=== PATIENT | female | born 1940 | race Caucasian/White ===

== ENCOUNTER 2020-06-27 14:12 | Inpatient (IN) | payer OTHER, BC ==
[~2020-06-27] VITALS: Ht 162.6 cm; Wt 64.7 kg
--- NOTE | ~2020-06-27 | D ---
[facility] [place] [address] DISCHARGE SUMMARY Name: SUNSHINE AHMADI Room #: 519A-A [facility] IN M.R.#: [id number] Admission: 06/27/20 Attend Phys: Elpidio Can DO Discharge: 07/11/20 Date of : 42 Report #: [id number] THIS REPORT FOR: cc: ED HINSON Physician not on staff Elpidio Can DO ~ THIS REPORT FOR: //name// CC: Elpidio HINSON Physician staff DATE OF SERVICE: 07/11/2020 INPATIENT PSYCHIATRY DISCHARGE SUMMARY ATTENDING PHYSICIAN: Elpidio Can DO GROUND HOST/HOSTESS AT THE TIME OF DISCHARGE: Massimo Leary MD DISCHARGE DIAGNOSES: As follows: Bipolar 1 disorder, manic features, improved and major neurocognitive disorder. MEDICAL COMORBIDITIES: This admission include left renal cell carcinoma, outpatient Neurology followup, hypertension, diabetes mellitus type 2, hypothyroidism, osteoarthritis, cervical degenerative disk disease, chronic urinary incontinence. DISCHARGE PLAN: Discharged to the home she shares with her son. Follow up, the son wishes to arrange [facility]. Engagement is encouraged in the patient's case officially. Tej is going to schedule primary care physician, I believe [facility]. This is very near the zip code where they live. The patient's diet should be an 1800-calorie diabetic diet, 08/06 care supervision recommended for the patient. DISCHARGE MEDICATIONS: Amlodipine 10 mg oral daily for hypertension; Depakote Sprinkles 750 mg p.o. b.i.d. for mood stabilization; Seroquel 125 mg p.o. at [phone] and 50 mg p.o. at 2200; pantoprazole 40 mg p.o. daily, metformin 500 mg p.o. b.i.d., glipizide 5 mg p.o. daily, levothyroxine 200 mcg p.o. daily; nystatin 15 gram powder topically 3 times a 30-day, apply for 2 more weeks. A 30-day prescription was supplied for psychiatric medication. LABORATORY DATA: This admission, urinalysis showed urobilinogen of 4, leukocyte esterase 2+. Red blood cells, white blood cells, squamous epithelial cells, crystals none seen, bacteria few. Urine casts were none seen. Mucus light urine, had negative random glucose. Most recent Depakote level was 37 on [facility] [address] [place] [address] DISCHARGE SUMMARY Name: SUNSHINE AHMADI JESSICA Room #: 519A-A [facility] IN [facility]#: [id number] Admission: 06/27/20 Attend Phys: Elpidio Can DO Discharge: 07/11/20 Date of : 42 Report #: [id number] 07/09/2020, dose was increased and actually as I look through the mail, the patient has prescription for followup Depakote level because there is a dose after that was increased, I believe. Microbiology at this admission showed a normal genitourinary turner. REASON FOR ADMISSION: Back on 06/27/2020, a 79-year-old female referred from [facility]. She has had a recent diagnosis of cancer. She was noted to be slurring her words pressured speech, flight of ideas, brought to the ER and not responding to questions appropriately. The patient was referred for psychiatric admission. HOSPITAL COURSE: The patient was admitted to Geriatric Psychiatry Unit. The patient remained disorganized, intrusive for at least the first week of her hospitalization. Olanzapine was started. Depakote was started, first level came back at 37 from 500 b.i.d., this was increased to 750 b.i.d. Seroquel was slowly titrated. She did have periods of poor sleep, only sleeping a couple of hours at night. Over time, her behavior improved. Recommended assisted living level of care. The son wanted her to remain in the home they shared together. PHYSICAL EXAMINATION: VITAL SIGNS: On the day of discharge, temperature 36.3, pulse 103, respirations 18, BP 138/71, O2 sat 99%. MUSCULOSKELETAL: Normal gait and station. MENTAL STATUS EXAMINATION: This is a well-developed, disheveled female appearing stated age. Attention limited. Concentration limited. Speech is normal in rate, volume and tone. Thought process is linear and goal directed. Thought content, relative poverty of thought. No psychomotor agitation or psychomotor retardation. Denied SI or HI. Denied hopelessness, helplessness. Denied auditory, visual, or tactile hallucinations. Memory not formally tested on the day of discharge, but known to be impaired. Insight limited. Judgment fair to limited. Fund of knowledge below average. PROGNOSIS: For this patient is guarded given her age and having chronic mental illness and really will depend on the level of care the son can to provide. By: 15 38 Elpidio Can, /nt
[2020-06-27 16:11] VITALS: BP 145/65
--- NOTE | 2020-06-27 18:00 | NUR ---
Patient arrived per [facility] ambulance with 3 attendants at 1345 with belongings and further belongings from son later. Phone consents from son Tej witnessed by Monica RN and LOIS Roy.During interview patient was cooperative,oriented only to person. She denied SI/HI/AH/VH. She said she was 89 yo though is 79 per birthdate. She did not know her meds. She lives with her son. She stated he lives with her coming in when she needs help. Son says he is with her when he is in town and she has companions/caregivers when he is out of town. No delusional content was detected. Patient stated she fell recently prior to coming into the hospital-that she blacked out and in the process of trying to catch herself her head struck the wall x 2. No c/o headache. She stated she has lost some weight but is not an accurate historian as son thought she had lost from 172# 2-3 years ago then lately has lost 6-7# due to sheng. Son reports she has a good appetite. Per report from [facility] pt. has Bipolar/Sheng, increased agitation, SI, poor sleep, delusional. Medically she has Renal Carcinoma--no mets to spleen. Patient reported she had the following organs removed: both kidneys, spleen, and pancreas=unverified. Patient is a poor historian as she does not know her medications. It is not yet know who if anyone supervises her medications at home. Report from [facility] stated she ambulates with standby assist, yet this RN observed her to have a steady gait and does not need to hold onto the railings or another person or use a walker. Currently patient weighed at 147.6# in bed. Skin: has a skin tear from outside the hospital on right upper arm partially healed. It is about 3cm long one layer skin thickness deep with slight pink extending in a fond du lac outward 1.5cm. Low groin right to left crease with reddened moist/shiny area-possible yeast. She was given yellow t-shirt and yellow socks, yellow arm band, red name tag on door for high fall risk. She ate turkey sandwich, chips, peaches, SF pudding, adama cracker. Her AC fingerstick BS was taken a couple hours later [id number]. She did eat some dinner. Additional past medical history: Arthritis, HTN, DMII, urinary incontinence, Abdominal pain, Acid refux, Depression, Diarrhea. She has had knee surgery. She is watching TV, occasionally conversing with peers.
[2020-06-27 19:57] VITALS: BP 115/32
--- NOTE | 2020-06-27 20:03 | NUR ---
Addendum: Patient says she would not commit suicide. she has a family history of suicide=her oldest sis commited suicide because she didn't want to turn 30 yo so she of CO poisoning with her car + she was also taking diet pills and other pills supposedly prescribed for her. Pt. admits to having depressive episodes, having one yesterday but not today. Sometimes she feels hopeless. She denies any history of substance abuse/no family hx. substance abuse. 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 She is a [employer], has hobbies of [employer] and macrame, non-smoker.
[2020-06-27 23:55] LABS: URINE BILIRUBIN NEGATIVE (Negative); URINE BLOOD NEGATIVE (Negative); URINE CLARITY SL CLOUDY; URINE COLOR YELLOW; URINE GLUCOSE-RANDOM* NEGATIVE (Negative); URINE KETONES NEGATIVE (Negative); URINE LEUKOCYTES-REFLEX 2+ (Negative); URINE NITRITE-REFLEX NEGATIVE (Negative); URINE PROTEIN (DIPSTICK) NEGATIVE (Negative); URINE SPECIFIC GRAVITY 1.015 (1.005-1.035)
[2020-06-28 00:25] LABS: SQUAMOUS 4-10 Moderate /LPF (0-3)
[2020-06-28 00:26] LABS: BACTERIA-REFLEX 1-9 Few /HPF (None Seen); CASTS None Seen /LPF (None Seen); CRYSTALS None Seen /LPF (None Seen); MUCUS 0-3 Light strn/LPF (None Seen); URINE RBC 3-10 Few /HPF (0-2)
--- NOTE | 2020-06-28 03:23 | NUR ---
Care of patient assumed at 1915. Patient is baljinder mayfield the day room coversing with a peer. Pleasant and cooperative upon approach. A/O x 2. Insists her son put her here to punish her. HS, LS, BS normal. Reports LBM 06/27/20. Starts talking about having surgery earlier today and how the surgeon took out all of her organs to get rid of the cancer. Goes on about this until 0100, then insists that it is 0800 and she wants her breakfast now. Unable to reorient her to time whatsoever. Patient paces back and forth, concocting a conspiracy theory involving all of the staff changing every clock, watch, and cell phone to read an inaccurate time just to avoid giving her breakfast.
--- NOTE | 2020-06-28 07:48 | NUR ---
Nutrition: Assessing due to consult received for wound. Admit: unspecified depressive disorder. Pt noted to be confused and a poor historian. Hx DM, and recent dx left renal carcinoma per provider notes. Per EMR, pt developing conspiracy theories overnight about staff. EMR reviewed. No pressure wounds indicated. Only skin issue documented is 1 skin tear from prior to admit on R arm - already partially healed per nursing notes. Terrance score excellent at 21, with no other skin risks documented. Son had reported pt has a good appetite to nursing. Already completed 100% of first meal last night as pt is a new admit and was wanting to eat more in the middle of the night. No wt loss indicated and pt at very healthy wt 146#, BMI 25.1 kg/m2. Anticipate low nutrition risk; will follow for any changes in skin condition though.
[2020-06-28 09:06] VITALS: BP 143/48
--- NOTE | 2020-06-28 14:12 | NUR ---
INITALLY THIS AM WAS HYPERVERBAL-PRESSURED SPEECH AND CARETAKING OF PEERS BUT PLEASANT AND COOPERATIVE. LAUGHING AND JOKING WITH STAFF-ATE BREAKFAST AND TOOK AM MEDICATIONS AND SS INSULIN WITHOUT RESISTANCE.DENIES C/O PAIN/DISCOMFORT DURING AM ASSESSMENT-CONVERSATION IS CIRCUMSTANTIAL AND AT TIMES DELUSIONAL TALKING ABOUT A SURGERY THAT SHE HAD HAD YESTERDAY AND SPEAKING ABOUT WOMAN VISITING A MALE PATIENT HERE "ALL NIGHT-THEY HAD SEVERAL WOMEN HERE AND I THINK THEY HAD A PART"
--- NOTE | 2020-06-28 14:25 | NUR ---
AT APPROX 1200 NOTED TO HAVE INCREASED AGITATION AND DELUSIONAL THOUGHTS-PACING RAPIDLY IN HALLWAYS AND ENTERING DAYROOM WHERE GROUP WAS BEING HELD TALKING LOUDLY AND AT TIMES YELLING ABOUT THE FACT THAT SHE HAS NOT HAD ANYTHING TO EAT OR DRINK SINCE THURSDAY WHEN SHE HAD HER SURGERY. STATES UNABLE TO RECALL WHEN SHE HAD BREAKFAST AND PILLS THIS AM-SCREAMING AT THIS NURSE-YOU NEED TO CALL THE [employer] DYER RIGHT NOW-I THINK YOU ARE IN ON IT TOO" REFUSED LUNCH WHEN OFFERED STATING "ITS TOO LATE NOW YOU ARE SCARED BECAUSE THE POLICE ARE GETTING INVOLVED-ITS PROBABLY BAD" PT UNABLE TO BE REASSURED OR REDIRECTED-SON JANESSA CONTACTED AND SPOKE WITH PT IN ATTEMPT TO REASSURE,CALM DOWN-WITHOUT SUCCESS. APPROACHING PEERS IN DAYROOM TELLING THEM THEY WERE NOT SAFE HERE AND ASKING THEM TO CALL 911. DR ESCAMILLA CONTACTED AND O RECEIVED-GEODON 15MG IM GIVEN IN RIGHT DELTOID WITH MINIMAL RESISTANCE AT APPROX 1315.
[2020-06-29 02:45] VITALS: BP 145/61
[2020-06-29 03:56] VITALS: BP 145/61
[2020-06-29 04:20] VITALS: BP 129/51
--- NOTE | 2020-06-29 04:55 | NUR ---
Care of patient assumed at 1915. Patient is sitting in day room yelling that she wants her breakfast. It is explained to patient that it is 7:15PM and there is still over 12 hours until breakfast. Patient begins yelling that staff is lying to her and changing all of the clocks, watches, and cell phones to read a different time. Finally able to distract patient from this train of thgouht and compelte assessment. HS, LS, BS normal. Patient A/O x 2. Claims she hasn't eaten or slept in 15 days. This nurse has worked each night since her arrival and knows that she has in fact slept, thgouh not many hours. Patient refuses HS meds. Up and pacing the unit, talking loudly, voicing her delusions about staff, conspiracies involving time, and stating that she has had surgery removing all of her organs. As she walks around the unit, patient repeatedly hits emergency buttons, doorbells to entrys, and slaps a magazine against the wall outside other patients doors, waking many patients. Due to disruptive behavior and agitation, quality control checker in contacted and orders received for Haldol 5mg IM. Injection given without incident. Patient sleeps for approximately 30 minutes then is awakened by a patient she had previously awakened. Patient goes back to walking around the unit displaying same behaviors. Patient is informed that further behaviors will result in a time out in the quiet room. Behaviors continue so patient is taken to quiet room. Patient escorted into QR and door left unlocked. Patient is told that once she has calmed down and is not so loud that she can come back out. Patient sits for a couple of minutes, then begins taking the mattress off of the bed in the QR and ramming the door, flinging it open and almost falling. Patient is redirected, but continues behavior. This nurse hears mattress being dragged off of the pedestal bed and gets to the door just as patient is trying to jami it again. This nurse catches the mattress, and patient rebounds off of the mattress and falls back onto the pedestal bed, then rpolls onto the floor. Patient is assisted back onto her feet and encouraged to sit down to prevent further falls. Patient denies any injury and denies any pain at this time. A couple of minutes later, patient tries to bust through the door with this nurse standing at the door. Patient begins swinging and clawing at this nurse. Attack is deflected and limbs restrained to prevent further assault. Patient is taken back into the QR and placed on the bed. Patient gets back up and again sergio the door, this time with her body. This nurse is standing on the other side of the door, preventing the door from flinging open and patient falling through. Patient yelling threats and insults at staff. call center support consultant contacted again and order received for Olanzapine 10mg IM. Injection given without inciedent and patient agrees to sits calmly for 5 minutes. Patient is then allowed out of the QR and goes back to the day room. Fall report ccompleted and quality control checker CONTRACTING SUPPORT SPECIALIST notified. Notifaction to family member deferred at this time due to hour of the morning. A short time later patient walks to her room to go to bed. During 0500 checks, patient is found to be in another room lying in a vacant bed. Patient is escorted to ther room and assisted to bed. Assessed again for injury. No signs of injury noted. Patient reports muscle soreness, but no pain where her back contacted the pedestal bed. Patient is offerred APAP for muscle pain but declines. After 5 minutes patient is back up and walks to the day room. Vitals taken again and patient asked once more if she has any pain. Denies pain. Vitals WNL for patient.
[2020-06-29 05:30] VITALS: BP 129/51
[2020-06-29 08:40] VITALS: BP 120/78
--- NOTE | 2020-06-29 08:56 | NUR ---
PT TOOK MEDS THIS AM WITHOUT ANY ISSUES. PT LUNGS CLEAR. PT UP WALKING WITH MAGAZINE FOLDED UP. PT USUALLY LOOKING FOR HER ROOM. PT STATED THAT ALL THE BEDS SHE HAS BEEN IN THEM. PT ORIENTED TO SELF.
--- NOTE | 2020-06-29 14:56 | NUR ---
PT RESTING IN BED WITH EYES CLOSED. PT DID TAKE MEDS FOR THIS ONLINE MERCHANDISING SPECIALIST AT THIS TIME.
--- NOTE | 2020-06-30 05:40 | NUR ---
Pt alert and oriented to person and place. Pt was on a recliner in the dayroom at time of assessment. Pt was pleasant and cooperative with assessment. Voiced having bm x3 yesterday. Pt took meds whole without hesitation. R/elbow skintear open to air. Pt currently in her room sleeping. Fall precaution in place. Will continue to monitor.
[2020-06-30 07:31] VITALS: BP 151/50
--- NOTE | 2020-06-30 15:07 | H ---
[facility] [place] [address] [place] [address] HISTORY AND PHYSICAL Name: SUNSHINE AUGUSTIN Room #: 524B-B ADM IN M.R.#: [id number] Admission: 06/27/20 Attend Phys: Elpidio Can DO Discharge: Date of : 42 Report #: [id number] THIS REPORT FOR: cc: ED HINSON Physician not on staff Elpidio Can DO ~ CC: Elpidio HINSON Physician staff cc: Two days ago, she had a mechanical fall and struck her head. She reports head pain, but no other injuries. sheng HPI: 79 y/o female admitted from [facility] . She is hearing people in her basement walking around. She is aware that there is no one down there because she checks each night. She denies HI. She has several medical issues including kidney cancer, diabetes mellitus type 1. Today, she thought she was coming to the hospital for surgery. This is not the case. She does have previous diagnosis of bipolar 1. She works with Dr. Franklin who is prescribing her medications. She takes them as prescribed and she was noted to be slurring words demonstrating pressured speech, flight of ideas in the ER. When asked about dates of anything, she would respond with a number of zeros. She was oriented to self and environment. Memory seems poor. I actually did a portion of the [facility] mental status examination. She was only 2 for 5 on delayed recall. She was fully oriented. She only got reverse digit span, the three digits, she could not make change out of $100. She thinks her is still alive and they are planning a tour of [place] with the whole family. This is from the ER notes. In the next sentence, she refers not been able to see her grandchildren despite them living in the area. The patient stayed mostly calm during interview. She lives in her own home and has no support. Sleep has been a significant problem for many years. The patient's son, Tej Augustin, was contacted by phone. Mr. Augustin reports that the patient has been agitated, irrational, manic. He added some historical information. He is completing affidavit in addition to the nurse she admits that she was suicidal today. Affidavit performed by Ema. During the psych screening in triage, the patient stated that she was suicidal and had attempted to lie down on railroad tracks and expressed her wanting to when train running over her. The patient expressed she wished she was . The patient expressed suicidal thoughts. The patient answered yes when asked if she had intent on acting on her suicidal plan. The patient had manic behavior during triage with rapid speech, increase in energy. Affect was not appropriate to situation. When asked if she started to do anything to prepare to end her life, she stated yes, she states she had thoughts for over [address] [address] HISTORY AND PHYSICAL Name: SUNSHINE AUGUSTIN Room #: 524B-B ADM IN M.R.#: [id number] Admission: 06/27/20 Attend Phys: Elpidio Can, DO Discharge: Date of : 42 Report #: [id number] LABORATORY DATA: Urinalysis was positive for leukocyte esterase, otherwise negative. White blood cell count 6.04, H and H 7.7 and 24, platelet count 155. Electrolytes and such: Sodium 137, potassium 4.4, chloride 104, bicarbonate 23, anion gap 10, calcium 8.8, glucose 157, total protein 7.5, albumin 4.0, alkaline phosphatase 140, ALT 24, AST 35, bilirubin 0.4. Blood urea nitrogen 19, creatinine 0.9, eGFR female non- 61. On review of medications, appeared to be amlodipine, glipizide, levothyroxine, metformin, pantoprazole, paroxetine 30 mg daily, Seroquel 100 mg p.o. daily, zolpidem 10 mg. FAMILY HISTORY: Diabetes in her mother. Denies alcohol use. Denies being sexually active. Denies recreational drug use. PAST SURGICAL HISTORY: Knee surgery. PAST MEDICAL HISTORY: Includes arthritis, hypertension, diabetes mellitus type 2, urinary incontinence, abdominal pain, acid reflux, diarrhea, arthritis, high blood pressure. PSYCHIATRIC HISTORY: Includes bipolar spectrum illness. SARS-CoV-2 PCR was negative. On psych, they did a CT head, which was negative. CT neck showed nothing to I believe focal. PHYSICAL EXAMINATION: VITAL SIGNS: Today as follows: Temperature 36.9, pulse 74, respirations 19, BP 143/48, O2 sat 98%. Laboratories done, repeat urinalysis was positive for leukocyte esterase, rbc's, wbc's, squamous cells, few bacteria, mucus. Blood sugars ranged 160 to 240 since admission. MUSCULOSKELETAL: Ambulatory on her feet, explain a lot of off balance appearance so Physical Therapist will screen. MENTAL STATUS EXAMINATION: This is a well-developed, some ill abnormal appearing female appearing at least stated age. Attention limited. Concentration limited. Speech increased, rate and volume increased. Thought process is linear in general. Thought content, some poverty of thought. She was shifting subject matter on the frequent side. Denied SI or HI. Denied auditory, visual, or tactile hallucinations. Memory impaired, insight impaired, judgment impaired. Fund of knowledge well below average. [facility] [place] [place] [address] HISTORY AND PHYSICAL Name: SUNSHINE AUGUSTIN Room #: 524B-B ADM IN M.R.#: [id number] Admission: 06/27/20 Attend Phys: Elpidio Can DO Discharge: Date of : 42 Report #: [id number] FORMULATION: A 79-year-old female sent from [facility] for manic episode. Recent diagnosis of renal cell carcinoma. DIAGNOSES: At this time, bipolar 1 disorder, most recent episode manic with psychotic features, renal cell carcinoma, new diagnosis, no treatment initiated. Other medical morbidities include urinary tract infection, doxycycline initiated; hypertension; diabetes; hypothyroidism; arthritis; history of urinary incontinence. MEDICATIONS: At this time, Paxil 20 mg p.o. daily, doxycycline 100 mg p.o. b.i.d., amlodipine 10 mg p.o. daily, glipizide XL 5 mg p.o. with breakfast, pantoprazole 40 mg p.o. daily, levothyroxine 300 mcg oral daily, Seroquel 300 mg daily at 2200, insulin. She is on looks like a sliding scale, metformin 500 mg b.i.d. PLAN: Evaluate, stabilize, obtain collateral. I have to reach out to her son, Tej. ESTIMATED LENGTH OF STAY: 10-14 days. We will perform cognitive examination. STRENGTHS: She is insured, has family support. WEAKNESSES: Advancing age, morbidities. <ELECTRONICALLY SIGNED> By: Elpidio Can, 06/30/20 1507 [id number] Elpidio Can, /nt
--- NOTE | 2020-06-30 16:24 | NUR ---
Alert and orientated X3. Unable to state name. States she is here because she is "nuts"! Calm and cooperative, compliant with meds. Conversive with staff and peers. Breath sounds clear. Reg HR auscultated. Color pink with brisk capillary refill and palpable peripheral pulses. No edema noted. Independent with voiding. Active bowel sounds over soft, full abdomen. Milk of magnesia given with prune juice. Reg, steady gait, on fall risk precautions. Purple bruise on R hip. Healing skin tear to R arm. Skin under abdominal and inguinal folds red and excoriated, cleaned and dried. Spoke with Dr. Thompson, nystatin powder ordered and applied. At times talking to self as she is walking in halls but when asked states she was told to find items and associate them with letters of the alphabet. Bath done and shampooed hair.
[2020-06-30 20:20] VITALS: BP 140/63
--- NOTE | 2020-06-30 23:37 | NUR ---
Pt oriented to self. Confused. Pt was in the dayroom at time of assessment. Calm and cooperative. Pt had a happy affect. Interactive. Pt took meds whole without problems. Pt was hyperverbal and hyperactive. Spelling and repeating words x2 each time. Pt encouraged to tone it done in the dayroom so as not to aggravate other patients. Pt would keep quiet and sit for about 2 mins, then continue being hyperverbal. Pt kept repeating "the [place] ". Pt taken to her room to lay down. Pt laid down and came out after 30 mins, walking into fellow pt's room's with no pants on. Pt redirected to room. pt stayed in bed for a little over an hour, and now pt is out of room again mumbling words, with not pants on. Pt redirected again in her room. Will continue to monitor.
[2020-07-01 07:44] VITALS: BP 163/56
--- NOTE | 2020-07-01 09:25 | NUR ---
ASSUMED CARE AT 0700 THIS MORNING. PT. SUP IN CHAIR. SHE WAS GIVEN HER MEDICATIONS WITH PROBLEMS NOTED. SHE ATE WELL FOR BREAKFAST. WHEN STAFF WAS PASSING THE TRAYS, SHE KEPT ANSWERING TO ALL NAMES CALLED.
[2020-07-01 18:13] VITALS: BP 163/56
--- NOTE | 2020-07-01 18:17 | NUR ---
ASSUMED CARE AT 0700 TODAY. PT. UP IN CHAIR, COOPERATIVE WITH MEDICATIONS AND ASSESSMENT. SHE HAS EATEN WELL TODAY. SHE TRIED TO INTERACT WITH A FEMALE PEER BUT THE PEER TRIED TO PUT HER NAILS INTO THIS PATIENT. SHE WAS ASKED TO MOVE AWAY. SHE HAS TAKEN HER MEDICATIONS WITHOUT PROBLEMS NOTED. HAS BEEN COOPERATIVE WITH BLOOD SUGARS.
[2020-07-01 19:36] VITALS: BP 149/51
--- NOTE | 2020-07-01 22:15 | NUR ---
PT WAS BELLIGERENT, THREATENING AND HITTING STAFF. PT REFUSED TO KEEP SOCKS ON. PT ALSO HARASSING OTHER PTS. SECURITY CALLED. DR MOON NOTIFIED. ORDERS RECEIVED AND ADMINISTERED. PT IS CURRENTLY WALKING THE HALLWAYS. WILL CONTINUE TO MONITOR.
[2020-07-02 07:37] VITALS: BP 152/80
--- NOTE | 2020-07-02 10:40 | NUR ---
FLOWER and Dr. Can contacted pt's son Tej Augustin and gave him and update on pt's progress and med changes. Dr. Can said he thinks pt will need to remain on until possibly early next week. SW team will continue to follow pt during her stay on this unit.
--- NOTE | 2020-07-02 14:53 | NUR ---
SLEPT LATE THIS AM UNTIL APPROX 1045-AWAKENED BRIEFLY TO SIT UP AND TAKE AM MEDICATIONS AND VS OBTAINED. REFUSED BREAKFAST AND 0900 S.S INSULIN NOT ADMINISTERED PER ORDER. DID EAT APPROX 70 PERCENT OF LUNCH AND BS 153-3 UNITS INSULIN PER S.S. DID ATTEND 1300 GROUP AND VISITED PLEASANTLY WITH NURSES AND FEMALE PEERS IN DAYROOM THIS PM. DID MAKE 1-2 COMMENTS ABOUT NOT BEING FED FOR 3-4 DAYS BUT IS EASILY REDIRECTED. GAIT UNSTEADY AT TIMES BUT DOES ALLOW STAFF TO ASSIST IN AMBULATION WHEN NEEDED.
[2020-07-02 20:02] VITALS: BP 168/86
--- NOTE | 2020-07-03 05:14 | NUR ---
Pt. became agitated and started trying to go around and help other patients. When trying to redirect pt. she started swinging her arms. Dr. Can called and notified. New orders received for marisol (see cpoe). Marisol was helpful. She did rest for a few hours, but currently awake sitting quietly in the chair.
[2020-07-03 09:05] VITALS: BP 150/72
[2020-07-03 19:31] VITALS: BP 148/66
[2020-07-03 21:45] VITALS: BP 148/66
--- NOTE | 2020-07-04 03:05 | NUR ---
Assumed pt care at 1930. Pt is seen in the common room with the other patient. Pt is alert nut confused. No aggressiv behavior noted. Pt is sitting in chair. Fall precaution in place. Assessment completed and documented. Scheduled meds administered to pt. Tolerated PO intake. Pt slept for about three hours and she was awake and sitting in the common room. Denies any pain. No acute event overnight. Continue to monitor. No further needs at this time.
[2020-07-04 07:24] VITALS: BP 165/74
--- NOTE | 2020-07-04 11:56 | NUR ---
RT Progress Note- Kodiveronica has been present in the milieu and recreation therapy groups when asked to attend. She continues to display manic and inappropriate social interactions during these times-- interrupting peers during conversation, entering their personal space, making delusional statements. She is however easily redirected. She particularly enjoys reminiscing about her children-"twins" and her craft hobbies.
--- NOTE | 2020-07-04 13:50 | NUR ---
Assumed care 0700. Verbalization quite confused, saying nonsense words. Note groin, below panus crease redness clearing up with Nystatin powder. Cooperative, eating, compliant with medications. Has no particular concerns. Taking an afternoon nap.
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
[2020-07-04 20:06] VITALS: BP 151/67
--- NOTE | 2020-07-05 00:01 | NUR ---
Assumed care on 07/04/20 @ 19:30, seated in the day room in a denae chair. X3 becomes agitated and interacts with peers, and redirected. Cooperated with assessment, HRRR, Lungs sounds normo, abd BS normo, reports BM daily. Oriented x4 but needs to be prompted to report each element of the date. Denies pain. Given prn Seroquel 25 @ 2300 for agitation and agression. In bed at this writing, will continue to monitor as per protocol for patient safety and comfort.
[2020-07-05 02:14] VITALS: BP 151/67
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
[2020-07-05 09:17] VITALS: BP 128/53
--- NOTE | 2020-07-05 17:14 | NUR ---
0700 ASSUMED CARE OF PATIENT. PATIENT TO DAYROOM THIS AM AND NOTE TO BE CALM AND COOPERATIVE. PATIENT SITS WITH OTHERS COMMUICATING WELL. PATIENT DENIED NEEDS AT THAT TIME. PATIENT LS CLEAR, BS ACTIVE. MEDICATIONS TAKEN WHOLE WITHOUT DIFFICULTY. PATIENT NOTED TO BE INTRUSIVE AND AMBULATING IN THE [place]. NO C/O PAIN. PATIENT PRESENT FOR AM GROUP. PATIENT AMB WITH A STEADY GAIT. WILL CONTINUE TO OBSERVE
[2020-07-05 20:42] VITALS: BP 156/67
--- NOTE | 2020-07-05 23:27 | NUR ---
Assumed care on 07/05/20 @ 19:15, Seated in a chair at a table in the day room, coloring with colored pencils. Cooperated with assessment, HRRR, Lungs diminished, ABD N x4Q. Affirmative BM today, reports wears brief. Confusion noted, reports delusion that she is [age] years old. Oriented to person and president, reports that she is at [facility], Unable to give current date. Denies pain. Went to bed @ HS, then got up @ 2325, and went into peers rooms, taken to the day room. Ambulateswith a fairly steady gait with assist. Ghosh score 55. Refused PO meds @ 2100, provided an IM of 5mg Olanzapine, tolerated well x2 staff assist.
[2020-07-06 00:07] VITALS: BP 156/67
--- NOTE | 2020-07-06 05:13 | NUR ---
Out of bed and agitated with peers and staff. [id number] p.o. provided for 5/10 general pain and Quetiapine 50mg p.o. provided for agitation. Patient repeatedly asked for color pencils then refused them once offered.
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
[2020-07-06 07:46] VITALS: BP 153/79
--- NOTE | 2020-07-06 09:25 | NUR ---
0700 ASSUMED CARE OF PATIENT, PATIENT SITTING IN DAYROOM WITH OTHERS. PATIENT EATING BREAKFAST AND COMMUNICATING WELL WITH OTHERS. MEDICATIONS TAKEN WHOLE WITHOUT DIFFICULTY. AFTER BREAKFAST PATIENT CONFUSED AND WANTING TO ENTER OTHER PATIENT ROOMS. WILL CONTINUE TO OBSERVE
--- NOTE | 2020-07-06 12:05 | NUR ---
FLOWER contacted Tej to provide an update. No answer. FLOWER lft msg. FLOWER team will continue to follow pt during her stay on this unit.
[2020-07-06 20:00] VITALS: BP 167/63
--- NOTE | 2020-07-07 05:28 | NUR ---
Assumed care on 07/06/20 @ 19:30, seated in the day room, ambulates with a fairly steady gait, Ghosh score 55. Walks the halls taking other patient's possessions from their rooms. Noted to nilda the things she takes in a paper sack in her room, or keeps the things with her. Cooperated with assessment, WNL, Compliant with medications. Sleept some and was awake some in the night.
[2020-07-07 05:32] VITALS: BP 167/63
[2020-07-07 07:40] VITALS: BP 127/79
--- NOTE | 2020-07-07 13:37 | NUR ---
PATIENT UP ON UNIT ALL DAY. ATE ALMOST ALL HER MEALS. RESPONSIVE TO QUESTIONS BUT CONFUSED AT TIMES. THOUGHT PATTERNS NOT CONSISTENT. CALM - NO AGITATION - EARLY AFTERNOON SPENT COLORING - ALERT 1-2 UNC[address] SHE IS. CLAIMS SLEPT WELL -
[2020-07-07 19:10] VITALS: BP 159/70
[2020-07-07 22:15] VITALS: BP 159/70
--- NOTE | 2020-07-08 02:22 | NUR ---
Assumed care of patient this pm shift. Patient sitting in the mileu during assessment. Patient in good spirits, calm and cooperative. Patient is very impulsive. Patient is also confused. Patient is alert and oriented x1-2. Patients affect is blunted. Patient is medication adherent and takes meds with thin fluids. Patient is considered a falls risk and has on a yellow shirt and socks. Patient ambulates without assistance. Patient has been awake throughout the night. Patient has delusions that the time we tell her is not the actual time. Patient states that she has not eaten in days. Patient denies hi/si. Patient denies pain at this time. Patients assessment shows no signs of acute distress. Patient is continent of bowel and bladder. We will continue to monitor per hosptial protocol. protocol.
[2020-07-08 07:31] VITALS: BP 155/63
--- NOTE | 2020-07-08 11:04 | NUR ---
PATIENT CARE ASSUMED AT 0700 - CALM AND PLEASANTLY CONFUSED. ALERT 1-2 - COULD NOT TELL STAFF YEAR BUT KNEW PRESIDENT - APPETITE GOOD - SPENT PREDATORY ANIMAL EXTERMINATOR IN DINING [place]. FOCUSED ON WATCHING TV - NO AGITATION OR AGGRESSION NOTED. STATES COLD TODAY AND OFFERED BLANKET. MEDICATION COMPLIANT.
[2020-07-08 19:35] VITALS: BP 99/77
--- NOTE | 2020-07-08 23:45 | NUR ---
ASSUMED PT CARE AT 1900.PT WAS OBSERVED BEEN AGITATED IMMEDIATELY AFTER SHIFT CAHNGE.ATTEMPTS TO REDIRECT HER FAILED.PT REF ALL HER HS MEDS.PT FINALLY RECEIVED ZYPREXA WITH THE HELP OF SECURITY.PT CALM AND COPERATIVE SINCE THEN.PT HAD BEEN UP AND DOWN FROM HER BED CONSTANTLY SETTING THE BED ALARM OFF.PT IS IN THE DAY ROOM NOW SITTING UP IN THE CHAIR.REPORT GIVEN TO THE NURSE RELIEVING ME AT [id number].
--- NOTE | 2020-07-09 06:20 | NUR ---
Assumed pt's care @ 2300. Pt went back and forth between room and dayroom for sleep. Pt got decent sleep overall this shift. Pt took morning meds with no issues. Pt currently laying down in the dayroom. Will continue to monitor.
--- NOTE | 2020-07-09 14:33 | NUR ---
0700 ASSUMED CARE OF PATIENT, PATIENT IN DAYROOM AT THAT TIME. 0730 PATIENT NOTED AMB IN [place] LOOKING FOR A OPEN DOOR. PATIENT ASKING STAFF TO OPEN DOORS THAT ARE NOT HER ROOM. PATIENT REDIRECTED TO DAYROOM FOR BREAKFAST. PATIENT ATE WELL. PATIENT GIVEN CARDS AND GIFT THAT ARRIVED IN MAIL TODAY. PATIENT CONTINUES TO AMB IN THE HALLS. PATIENT DENIES NEEDS AT THAT TIME. PATIENT CALM AND COOPERATIVE AT THIS TIME. DENIES NEEDS.
--- NOTE | 2020-07-09 15:00 | NUR ---
FLOWER contacted pt's son Tej to schedule d/c for Wed. FLOWER and Tej agreed upon 1300 d/c. FLOWER asked for doctor info so she can schedule psych and PCP appointments. Tej said he would prefer to do so himself after pt discharges. FLOWER team will continue to follow pt during her stay on this unit.
[2020-07-09 19:47] VITALS: BP 142/71
--- NOTE | 2020-07-10 05:50 | NUR ---
07-09-20 CARE TRANSFERED 1914 OBSERVED PT SITTING IN DAY ROOM SOCIALIZING WITH OTHERS. 1954 PT AAOX2, VSS, RR EVEN AND NONLABORED ON RA. PT DENIES ANY PAIN AND SI/SH/HI/VAH AT THIS TIME. PT REMAINED CALM AND COOPERATIVE THROUGHOUT NURSING ASSESSMENT. DURING MEDICATION ADMIN NOTED PT BECAME BELLIGERENT BUT DID COMPLY TAKING MEDICATION WITH NO PROBLEMS. LATER NOTED PT BECOMING MORE BELLIGERENT WITH AGITATION (); PRN MEDICATION WAS ADMIN PER HCP ORDERS. ALESSANDRA 30 TO 40 MINUTES LATER NOTED PT WAS CALM AND PLEASENT DURING CONVERSATION, LATER NOTED PT IN WRONG ROOM, BUT WAS IN OPEN BED RESTING WITH EYES CLOSED LEFT SIDE LYING. LATER NOTED PT UP IN DAY ROOM. THROUGHOUT NURSING ROUNDS NO S/S OF ACUTE DISTRES NOTED, PT WILL CONTINUE TO BE MONITOR PER [facility] PROTOCOL.
[2020-07-10 09:06] VITALS: BP 155/67
--- NOTE | 2020-07-10 10:04 | NUR ---
0700 ASSUMED CARE OF PATIENT, PATIENT IN BED AT THAT TIME. 0740 SUPERVISOR MAPPING ASSISTED PT CHANGE BRIEF AND PANTS. PT AMB TO DAYROOM FOR BREAKFAST WITH STANDBY ASSIST. PATIENT SITS AT TABLE WITH OTHERS AND NOTED SLEEPING OFF AND ON AFTER BREAKFAST. 0830 MEDIACTION TAKEN WHOLE WITHOUT DIFFICULTY BS 187 WITH 3 UNITS OF LISPRO GIVEN TO RIGHT ARM. PATIENT IN YELLOW SHIRT AND SOCKS. PATIENT DENIES OTHER NEEDS AT THIS TIME.
[2020-07-10 11:10] VITALS: BP 155/67
[2020-07-10 19:11] VITALS: BP 153/73
--- NOTE | 2020-07-11 05:18 | NUR ---
07-10-20 CARE TRANSFERRED 1914 OBSERVED PT IN DAY ROOM SOCIALIZING WITH OTHERS. 1944 PT PRESENTS CONSFUSED AAOX1, VSS RR EVEN AND NONLABORED ON RA. PT DENIES PAIN AND SI/SH/HI, PT REMAINED CALM AND COOPERATIVE. DURNG MEDICATION ADMIN, PT AT FIRST REFUSED, RECEIVED ASSISTED FROM SLABBING MACHINE OPERATOR AND PT COMPLIED. ZERO S/S OF ACUTE DISTRESS NOTED, WILL CONTINUE TO MONITOR PT PER [facility] PROTOCOL.
[2020-07-11 09:13] VITALS: BP 138/71
--- NOTE | 2020-07-11 10:49 | NUR ---
0700 ASSUMED CARE OF PATIENT, PATIENT IN ROOM IN BED AT THAT TIME. 0800 PATIENT IN DAYROOM FOR BREAKFAST. AFTER BREAKFAST PT SITTING ON COUCH WATCHING TV AND DISCUSSING WITH LEAK HUNTER ABOUT THE MORNING NEWS. PATIENT CALM AND COOPERATIVE. MEDICATION TAKEN WHOLE WITHOUT DIFFICULTY
[2020-07-11] MEDS ORDERED: NORVASC10 MG PO (11:51)
[2020-07-11] MEDS ORDERED: DEPAKOTE SPRIN125 MG PO (11:52)
[2020-07-11] MEDS ORDERED: SEROQUEL 100 M100 M1 PO ×2 (11:53→11:55)
[2020-07-11] MEDS ORDERED: SEROQUEL 25 MG25 M1 PO (11:54)
[2020-07-11] MEDS ORDERED: PROTONIX40 M1 PO (11:55)
[2020-07-11] MEDS ORDERED: GLUCOPHAGE500 MG PO (11:56)
[2020-07-11] MEDS ORDERED: GLIPIZIDE ER2.5 MG PO (11:56)
[2020-07-11] MEDS ORDERED: SYNTHROID200 MCG PO (11:57)
[2020-07-11] MEDS ORDERED: NYAMYC15 GM TOP (11:57)
--- NOTE | 2020-07-11 14:13 | NUR ---
AT 1230PM FIELD MARKETING ASSOCIATE RECIEVED CALL FROM SON THAT HE HAS ARRIVED AND PARKED DOWN BY ED. PATIENT SITTING IN DAYROOM AND NOT READY DC TIME WAS 1300. PATIENT TO ROOM AND FIELD MARKETING ASSOCIATE ASSISTS PT IN GETTING DRESSED IN PERSONAL CLOTHING. PATIENT IN WC WITH BELONGING IN HAND. PATIENT TO VEHICLE TO MEET SON PER WC. FIELD MARKETING ASSOCIATE GAVE SON DC INSTRUCTIONS, SON VOICED UNDERSTANDING. PT DC'D AT 1245
== END 2020-07-11 12:45 | disposition home or self-care (01) | DRG 885 ==
LOC: SBH 14:12
PROVIDERS: Nurse Practitioner; ADMIT Psychiatry & Neurology Psychiatry; ATTEND Psychiatry & Neurology Psychiatry
DX: F31.9 Bipolar disorder, unspecified (principal); F01.51 Vascular dementia, unspecified severity, with behavioral disturbance; R45.851 Suicidal ideations; F23 Brief psychotic disorder; C64.2 Malignant neoplasm of left kidney, except renal pelvis; N39.0 Urinary tract infection, site not specified; I10 Essential (primary) hypertension; E11.9 Type 2 diabetes mellitus without complications; M19.90 Unspecified osteoarthritis, unspecified site; F41.9 Anxiety disorder, unspecified; M50.30 Other cervical disc degeneration, unspecified cervical region; E03.9 Hypothyroidism, unspecified; Z79.84 Long term (current) use of oral hypoglycemic drugs; Z79.899 Other long term (current) drug therapy
CPT/HCPCS: 10880